=== PATIENT | male | born 1965 | race African-American/Black ===

== ENCOUNTER 2018-07-21 11:31 | Observation (INO) | payer BC ==
[2018-07-21 11:37] VITALS: BMI 29.0
--- NOTE | 2018-07-21 12:11 | PDOC ---
History of Present Illness - General History Source: Patient Exam Limitations: Intoxication <Praveen Nair - Last Filed: 07/21/18 14:23> - General History Source: Patient Exam Limitations: Intoxication <Lily Bacon Gilbert - Last Filed: 07/21/18 15:26> - General Chief Complaint: Chest Pain Stated Complaint: CHEST PAIN Time Seen by Provider: 07/21/18 11:53 - History of Present Illness Initial Comments: 07/21/18 14:23 The patient is a 53 year old male with a significant past medical history of Afib (no AC), CAD([place]) , Gout , and alcohol dependence who presents to the emergency department with left sided chest pain and palpitations and shortness of breath for 1 week.. The patient states that he drank some beer and wine prior to episode this morning. He report daily etho use. He denies any detox history. The patient denies any other symptoms. He denies any fever,chills, nausea, vomiting, diarrhea, constipation, or urinary symptoms. He denies any weakness, numbness or tingling sensation. He denies any headache or dizziness.the patient denies any other complaints. He was recently using allopurinol and steroids which he finished for his gout flare up, last week. (Praveen Nair) Past History <Praveen Nair - Last Filed: 07/21/18 14:23> - Past Medical History Cardiac Disorders: Yes (valve) COPD: No - Suicide/Smoking/Psychosocial Hx Smoking History: Never smoked Information on smoking cessation initiated: No Hx Alcohol Use: No Drug/Substance Use Hx: No Substance Use Type: Alcohol <Lily Bacon - Last Filed: 07/21/18 15:26> - Past Medical History Allergies/Adverse Reactions: Allergies Allergy/AdvReac Type Severity Reaction Status Date / Time No Known Allergies Allergy Verified 07/21/18 11:37 Home Medications: Ambulatory Orders Allopurinol [Zyloprim -] 100 mg PO DAILY 07/21/18 Review of Systems - Review of Systems Able to Perform ROS?: Yes <Praveen Nair - Last Filed: 07/21/18 14:23> <Lily Bacon - Last Filed: 07/21/18 15:26> - Review of Systems Comments:: 07/21/18 14:23 Constitutional: no fevers or chills. HEENT: no headache or dizziness. No congestion. No visual/hearing disturbances. CVS: (+)chest pain, palpitations, . no syncope. Resp: (+) shortness of breath. No cough. Abdomen: no abdominal pain, nausea or vomiting. Genitourinary: no urinary sx, hematuria. MUSCULOSKELETAL: No joint pain and swelling. No neck or back pain. SKIN: no redness or skin changes, no discharge, no rash. No wounds. Hematologic: no easy bruising/bleeding. NEUROLOGIC: No headache, dizziness, LOC or altered mental status. No weakness, numbness or tingling. All other systems reviewed and negative, or as documented in HPI. (Praveen Nair) *Physical Exam <Praveen Nair - Last Filed: 07/21/18 14:23> <Lily Bacon - Last Filed: 07/21/18 15:26> - Vital Signs Last Vital Signs Temp Pulse Resp BP Pulse Ox 98.2 F 89 17 117/78 98 07/21/18 14:01 07/21/18 14:01 07/21/18 14:01 07/21/18 14:01 07/21/18 14:01 - Physical Exam Comments: 07/21/18 14:23 General: (+)Intoxicated, slurred speech. awake and alert, NAD. HEENT: NCAT, PERRL, EOMI, clear conjunctiva, anicteric, moist mucus membranes, clear oropharynx. Airway patent, normal phonation Neck: neck supple, FROM Lungs: CTAB, normal and even respirations, no respiratory distress Heart: (+)irregularly irregular., normal rate. no murmurs, 2+ peripheral pulses throughout, no peripheral edema Abdomen: soft, NTND, no peritoneal signs. No CVAT Back: nontender, normal inspection and ROM Extremities: no edema, x4, ROM intact. No clubbing or cyanosis Neuro: alert, oriented appropriately; no focal neurologic deficits. Skin: warm and well perfused, cap refill <2 sec, normal color; no rash Extrem: no calf tenderness (Praveen Nair) ED Treatment Course - LABORATORY CBC & Chemistry Diagram: 07/21/18 12:30 07/21/18 12:30 <Praveen Nair - Last Filed: 07/21/18 14:23> - LABORATORY CBC & Chemistry Diagram: 07/21/18 12:30 07/21/18 12:30 <Lily Bacon - Last Filed: 07/21/18 15:26> - ADDITIONAL ORDERS Additional order review: Laboratory Results 07/21/18 07/21/18 07/21/18 13:00 12:40 12:30 PT with INR 11.70 INR 0.99 Sodium Potassium Chloride Carbon Dioxide Anion Gap BUN Creatinine Creat Clearance w eGFR Random Glucose Calcium Magnesium Total Bilirubin AST ALT Alkaline Phosphatase Creatine Kinase Creatine Kinase Index CK-MB (CK-2) Troponin I Total Protein Albumin Lipase Urine Color Colorless Urine Appearance Clear Urine pH 5.0 Ur Specific [place] 1.003 L Urine Protein Negative Urine Glucose (UA) Negative Urine Ketones Negative Urine Blood Negative Urine Nitrite Negative Urine Bilirubin Negative Urine Urobilinogen Negative Ur Leukocyte Esterase Negative Opiates Screen Negative Methadone Screen Negative Barbiturate Screen Negative Phencyclidine Screen Negative Ur Amphetamines Screen Negative MDMA (Ecstasy) Screen Negative Benzodiazepines Screen Negative Cocaine Screen Negative U Marijuana (THC) Screen Negative Alcohol, Quantitative 07/21/18 07/21/18 12:30 12:30 PT with INR INR Sodium 141 Potassium 4.3 Chloride 106 Carbon Dioxide 27 Anion Gap 9 BUN 12 Creatinine 0.9 Creat Clearance w eGFR > 60 Random Glucose 82 Calcium 8.5 Magnesium 2.2 Total Bilirubin 0.3 AST 58 H ALT 45 Alkaline Phosphatase 110 Creatine Kinase 178 Creatine Kinase Index 1.1 CK-MB (CK-2) 2.1 Troponin I < 0.02 < 0.02 Total Protein 8.1 Albumin 4.2 Lipase 227 Urine Color Urine Appearance Urine pH Ur Specific [place] Urine Protein Urine Glucose (UA) Urine Ketones Urine Blood Urine Nitrite Urine Bilirubin Urine Urobilinogen Ur Leukocyte Esterase Opiates Screen Methadone Screen Barbiturate Screen Phencyclidine Screen Ur Amphetamines Screen MDMA (Ecstasy) Screen Benzodiazepines Screen Cocaine Screen U Marijuana (THC) Screen Alcohol, Quantitative 354.7 H 07/21/18 12:30 RBC 4.15 MCV 92.6 MCHC 33.7 RDW 14.6 MPV 8.1 Neutrophils % 61.4 Lymphocytes % 27.8 Monocytes % 9.5 Eosinophils % 1.0 Basophils % 0.3 - RADIOLOGY Radiology Studies Ordered: Category Date Time Status CHEST PA & LAT [RAD] Stat Radiology 07/21/18 12:14 Completed - Medications Given in the ED: ED Medications Discontinued Medications Generic Name Dose Route Start Last Admin Trade Name Frederick PRN Reason Stop Dose Admin Aspirin 324 mg 07/21/18 12:39 07/21/18 12:53 Asa - PO 07/21/18 12:40 324 mg ONCE ONE Administration Sodium Chloride 1,000 ml 07/21/18 12:40 07/21/18 12:53 Normal Saline - IV 07/21/18 12:41 1,000 ml ONCE ONE Administration Medical Decision Making <Praveen Nair - Last Filed: 07/21/18 14:23> <Lily Bacon - Last Filed: 07/21/18 15:26> - Medical Decision Making 07/21/18 14:53 I, Lily Bacon MD, attest that this document has been prepared under my direction and personally reviewed by me in its entirety. I further attest, that it accurately reflects all work, treatment, procedures and medical decision -making performed by me. 53 year old male with a significant past medical history of Afib (no AC), CAD( [place]) , Gout , and alcohol dependence who presents to the emergency department with left sided chest pain and palpitations and shortness of breath for 1 week. vitals wnl, reassuring. Afib rate controlled, not on AC EKG with Afib at 89 bpm, nonspecific T wave abnormalities, normal ST segments, narrow QRS normal intervals. labs and lytes wnl, neg trop x1, no events does get tachy with agitation CXR clear, no edema or infection. intoxicated clinically with ETOH elevated as expected. Utox neg. cannot sign out or have capacity to make decisions while inebriated, at bedside made aware of impression plan. admit for tele monitoring serial trops/EKG, given cardiac risk factors and no cards followup, admit to hospitalist. no cards followup, and PMD in [facility]. 07/21/18 14:54 07/21/18 14:58 07/21/18 15:25 (Lily Bacon) *DC/Admit/Observation/Transfer <Praveen Nair - Last Filed: 07/21/18 14:23> - Discharge Dispostion Decision to Admit order: Yes <Lily Bacon - Last Filed: 07/21/18 15:26> Diagnosis at time of Disposition: Chest pain, Atrial fibrillation, Alcohol intoxication - Discharge Dispostion Condition at time of disposition: Guarded - Attestations Scribe Attestion: 07/21/18 14:24 Documentation prepared by Praveen Nair, acting as medical reception specialist for Lliy Bacon MD. (Praveen Nair)
[2018-07-21] MEDS ORDERED: ASPIRIN 81 MG CHEWABLE TABLETS PO ONE (12:39)
[2018-07-21] MEDS ORDERED: SODIUM CHLORIDE 0.9% 500 ML INFUS.BAG IV ONE (12:40)
[2018-07-21 12:45] LABS: BASO % 0.3 % (0-2.0); HEMATOCRIT 38.5 % (35.4-49); LYMPH % 27.8 % (8-40); MCH 31.2 pg (25.7-33.7); MCHC 33.7 g/dl (32.0-35.9); MEAN CELL VOLUME 92.6 fl (80-96); MEAN PLT VOLUME 8.1 fl (7.5-11.1); MONO % 9.5 % (3.8-10.2); NEUT % 61.4 % (42.8-82.8); PLATELET COUNT 185 K/MM3 (134-434); RBC 4.15 M/mm3 (4.00-5.60); RDW 14.6 % (11.9-15.9)
[2018-07-21] MEDS ORDERED: ASPIRIN 81 MG CHEWABLE TABLETS ONE (12:48)
[2018-07-21 13:00] LABS: INR 0.99 (0.83-1.09); PROTHROMBIN TIME (PATIENT) 11.7 SEC (9.7-13.0)
[2018-07-21 13:13] LABS: URINE APPEARANCE CLEAR; URINE BILIRUBIN NEGATIVE (<2.0 mg/dL); URINE COLOR COLORLESS; URINE GLUCOSE (UA) NEGATIVE (NEGATIVE); URINE KETONE NEGATIVE (NEGATIVE); URINE LEUK ESTERASE NEGATIVE (NEGATIVE); URINE NITRITE NEGATIVE (NEGATIVE); URINE PROTEIN NEGATIVE (NEGATIVE); URINE UROBILINOGEN NEGATIVE mg/dL (0.2-1.0)
[2018-07-21 13:17] LABS: ALBUMIN 4.2 g/dl (3.4-5.0); ALK PHOS 110 U/L (45-117); ANION GAP 9 MMOL/L (8-16); BILIRUBIN,TOTAL 0.3 mg/dL (0.2-1); BLOOD UREA NITROGEN 12 mg/dL (7-18); CALCIUM 8.5 mg/dL (8.5-10.1); CHLORIDE 106 mmol/L (98-107); CO2 27 mmol/L (21-32); CREATININE 0.9 mg/dL (0.55-1.3); GLUCOSE,RANDOM 82 mg/dL (74-106); MAGNESIUM 2.2 mg/dL (1.8-2.4); POTASSIUM 4.3 mmol/L (3.5-5.1); SGOT/AST 58 U/L (15-37); SGPT/ALT 45 U/L (13-61); SODIUM 141 mmol/L (136-145); TOT PROT 8.1 g/dl (6.4-8.2)
[2018-07-21 13:26] LABS: LIPASE 227 U/L (73-393)
[2018-07-21 13:38] LABS: COCAINE, UR NEGATIVE ng/ml (CUTOFF=300); METHADONE, UR NEGATIVE ng/ml (CUTOFF=300); OPIATES, URI NEGATIVE ng/ml (CUTOFF=300); PHENCYCLIDINE,URINE NEGATIVE ng/ml (CUTOFF=25); URINE AMPHETAMINES NEGATIVE ng/ml (CUTOFF=500); URINE BARBITURATES NEGATIVE ng/ml (CUTOFF=200); URINE BENZODIAZEPINES NEGATIVE ng/ml (CUTOFF=200)
--- NOTE | 2018-07-21 15:41 | HP ---
CHIEF COMPLAINT:CHEST PAIN. PCP: HISTORY OF PRESENT ILLNESS: 53 yo M with PMHx of CAD presents with one day history of chest pain. He states that this morning he was working on sanding his floor when he developed palpiatations and chest pain. He describes 3/10 non radiating left sided chest pain that was sharp and pressure-like. He states that the pain lasted about an hour and resolved spontaneously. Pain was no associated with diaphoresis. He has had similar pain in past approx. 3 yrs prior and was worked up with stress test which he claims was normal. He thinks he had an echo done at that time but unsure. He is unsure where this was all done. He denies [place] CRUZ, SOB, abdominal pain , fever, chills, nausea or vomiting. ER course was notable for: (1)EKG shows AFIB with no ischemic changes. (2)Given 325 ASA (3)first set troponin I negative. Recent Travel:denies PAST MEDICAL HISTORY: CAD, Hyperthyroidism?, Sickle cell trait. PAST SURGICAL HISTORY:hand surgery Social History: Smoking:never Alcohol:1-2 bottles of wine/day Drugs: remote history of Marijuana use. Family History: Allergies No Known Allergies Allergy (Verified 07/21/18 11:37) HOME MEDICATIONS: Home Medications Medication Instructions Recorded Allopurinol [Zyloprim -] 100 mg PO DAILY 07/21/18 REVIEW OF SYSTEMS CONSTITUTIONAL: Absent: fever, chills, diaphoresis, generalized weakness, malaise, loss of appetite, weight change HEENT: Absent: rhinorrhea, nasal congestion, throat pain, throat swelling, difficulty swallowing, mouth swelling, ear pain, eye pain, visual changes CARDIOVASCULAR: chest pain,palpitations Absent: , syncope, , irregular heart rate, lightheadedness, peripheral edema RESPIRATORY: Absent: cough, shortness of breath, dyspnea with exertion, orthopnea, wheezing, stridor, hemoptysis GASTROINTESTINAL: Absent: abdominal pain, abdominal distension, nausea, vomiting, diarrhea, constipation, melena, hematochezia GENITOURINARY: Absent: dysuria, frequency, urgency, hesitancy, hematuria, flank pain, genital pain MUSCULOSKELETAL: Absent: myalgia, arthralgia, joint swelling, back pain, neck pain SKIN: Absent: rash, itching, pallor HEMATOLOGIC/IMMUNOLOGIC: Absent: easy bleeding, easy bruising, lymphadenopathy, frequent infections ENDOCRINE: Absent: unexplained weight gain, unexplained weight loss, heat intolerance, cold intolerance NEUROLOGIC: Absent: headache, focal weakness or paresthesias, dizziness, unsteady gait, seizure, mental status changes, bladder or bowel incontinence PSYCHIATRIC: Absent: anxiety, depression, suicidal or homicidal ideation, hallucinations. PHYSICAL EXAMINATION Vital Signs - 24 hr 07/21/18 07/21/18 07/21/18 11:35 12:21 14:01 Temperature 98 F 98.2 F Pulse Rate 99 H Pulse Rate [ 89 89 Apical] Respiratory 19 17 17 Rate Blood Pressure 136/96 Blood Pressure 123/78 117/78 [Right Arm] O2 Sat by Pulse 96 98 98 Oximetry (%) GENERAL: AAOx3 , NAD HEAD:NCAT EYES: PERRLA,EOMI sclera anicteric, conjunctiva clear. No lid lag. EARS, NOSE, THROAT: Moist mucous membranes. NECK:Supple without lymphadenopathy, JVD, or masses. LUNGS: CTAB. No wheezes, and no crackles. No accessory muscle use. HEART: Irregular, normal S1 and S2 without murmur, rub or gallop. ABDOMEN: Soft, NTND,NABS no guarding, no rebound, no masses. No hepatomegaly or splenomegaly. MUSCULOSKELETAL: Normal range of motion at all joints. No bony deformities or tenderness. No CVA tenderness. LOWER EXTREMITIES: 2+ pulses, warm, well-perfused. No calf tenderness. No peripheral edema. NEUROLOGICAL: Cranial nerves II-XII intact. Normal speech. Normal gait. PSYCHIATRIC: Cooperative. Good eye contact. Appropriate mood and affect. SKIN: Warm, dry, normal turgor, no rashes or lesions noted, normal capillary refill. Laboratory Results - last 24 hr 07/21/18 07/21/18 07/21/18 12:30 12:30 12:30 WBC 6.0 RBC 4.15 Hgb 13.0 Hct 38.5 MCV 92.6 MCH 31.2 MCHC 33.7 RDW 14.6 Plt Count 185 MPV 8.1 Absolute Neuts (auto) 3.7 Neutrophils % 61.4 Lymphocytes % 27.8 Monocytes % 9.5 Eosinophils % 1.0 Basophils % 0.3 Nucleated RBC % 0 PT with INR INR Sodium 141 Potassium 4.3 Chloride 106 Carbon Dioxide 27 Anion Gap 9 BUN 12 Creatinine 0.9 Creat Clearance w eGFR > 60 Random Glucose 82 Calcium 8.5 Magnesium 2.2 Total Bilirubin 0.3 AST 58 H ALT 45 Alkaline Phosphatase 110 Creatine Kinase 178 Creatine Kinase Index 1.1 CK-MB (CK-2) 2.1 Troponin I < 0.02 < 0.02 Total Protein 8.1 Albumin 4.2 Lipase 227 Urine Color Urine Appearance Urine pH Ur Specific [place] Urine Protein Urine Glucose (UA) Urine Ketones Urine Blood Urine Nitrite Urine Bilirubin Urine Urobilinogen Ur Leukocyte Esterase Opiates Screen Methadone Screen Barbiturate Screen Phencyclidine Screen Ur Amphetamines Screen MDMA (Ecstasy) Screen Benzodiazepines Screen Cocaine Screen U Marijuana (THC) Screen Alcohol, Quantitative 354.7 H 07/21/18 07/21/18 07/21/18 12:30 12:40 13:00 WBC RBC Hgb Hct MCV MCH MCHC RDW Plt Count MPV Absolute Neuts (auto) Neutrophils % Lymphocytes % Monocytes % Eosinophils % Basophils % Nucleated RBC % PT with INR 11.70 INR 0.99 Sodium Potassium Chloride Carbon Dioxide Anion Gap BUN Creatinine Creat Clearance w eGFR Random Glucose Calcium Magnesium Total Bilirubin AST ALT Alkaline Phosphatase Creatine Kinase Creatine Kinase Index CK-MB (CK-2) Troponin I Total Protein Albumin Lipase Urine Color Colorless Urine Appearance Clear Urine pH 5.0 Ur Specific [place] 1.003 L Urine Protein Negative Urine Glucose (UA) Negative Urine Ketones Negative Urine Blood Negative Urine Nitrite Negative Urine Bilirubin Negative Urine Urobilinogen Negative Ur Leukocyte Esterase Negative Opiates Screen Negative Methadone Screen Negative Barbiturate Screen Negative Phencyclidine Screen Negative Ur Amphetamines Screen Negative MDMA (Ecstasy) Screen Negative Benzodiazepines Screen Negative Cocaine Screen Negative U Marijuana (THC) Screen Negative Alcohol, Quantitative ASSESSMENT/PLAN: 53 yo M with pmhx of CAD presents with chest pain and placed on observation to telemetry to r/o ACS. Problem List - Problem (1) Chest pain Assessment/Plan: will r/o ACS * Place on observation to telemetry * continuous monitoring * trend trops Q6H (first set negative) * Consult cardiology for possible stress test. * ASA given in ED - continue ASA 81mg daily * lipid panel pending. * Echo pending. (2) Atrial fibrillation Assessment/Plan: CHADSVASc score 1 * Not currently on rate control or AC * (3) Alcohol intoxication Assessment/Plan: drug and alcohol counsellor on the impact of Alcohol abuse. Visit type - Emergency Visit Emergency Visit: Yes ED Registration Date: 07/21/18 Care time: The patient presented to the Emergency Department on the above date and was hospitalized for further evaluation of their emergent condition. - New Patient This patient is new to me today: Yes Date on this admission: 07/21/18 - Critical Care Critical Care patient: No
[2018-07-21 16:50] VITALS: BP 122/79; PULSE 82; TEMP 98.6
--- NOTE | 2018-07-21 18:48 | DS ---
Physical Exam: SUBJECTIVE: Patient seen and examined at bedside. Dressed and eager to leave. Denies CP, [place] CRUZ, SOB, abdominal pain, nausea or vomiting. OBJECTIVE: Vital Signs Period Temp Pulse Resp BP Sys/Vuong Pulse Ox Last 24 Hr 98 F-98.6 F 82-99 17-19 117-136/78-96 96-98 PHYSICAL EXAM GENERAL: The patient is awake, alert, and fully oriented, in no acute distress. HEAD: Normal with no signs of trauma. EYES: PERRL, extraocular movements intact, sclera anicteric, conjunctiva clear. ENT: Ears normal, nares patent, oropharynx clear without exudates, moist mucous membranes. NECK: Trachea midline, full range of motion, supple. LUNGS: Breath sounds equal, clear to auscultation bilaterally, no wheezes, no crackles, no accessory muscle use. HEART: Irregular, S1, S2 without murmur, rub or gallop. ABDOMEN: Soft, nontender, nondistended, normoactive bowel sounds, no guarding, no rebound, no hepatosplenomegaly, no masses. EXTREMITIES: 2+ pulses, warm, well-perfused, no edema. NEUROLOGICAL: Cranial nerves II through XII grossly intact. Normal speech, gait not observed. PSYCH: Normal mood, normal affect. SKIN: Warm, dry, normal turgor, no rashes or lesions noted. LABS Laboratory Results - last 24 hr 07/21/18 07/21/18 07/21/18 12:30 12:30 12:30 WBC 6.0 RBC 4.15 Hgb 13.0 Hct 38.5 MCV 92.6 MCH 31.2 MCHC 33.7 RDW 14.6 Plt Count 185 MPV 8.1 Absolute Neuts (auto) 3.7 Neutrophils % 61.4 Lymphocytes % 27.8 Monocytes % 9.5 Eosinophils % 1.0 Basophils % 0.3 Nucleated RBC % 0 PT with INR INR Sodium 141 Potassium 4.3 Chloride 106 Carbon Dioxide 27 Anion Gap 9 BUN 12 Creatinine 0.9 Creat Clearance w eGFR > 60 Random Glucose 82 Calcium 8.5 Magnesium 2.2 Total Bilirubin 0.3 AST 58 H ALT 45 Alkaline Phosphatase 110 Creatine Kinase 178 Creatine Kinase Index 1.1 CK-MB (CK-2) 2.1 Troponin I < 0.02 < 0.02 Total Protein 8.1 Albumin 4.2 Lipase 227 Urine Color Urine Appearance Urine pH Ur Specific [place] Urine Protein Urine Glucose (UA) Urine Ketones Urine Blood Urine Nitrite Urine Bilirubin Urine Urobilinogen Ur Leukocyte Esterase Opiates Screen Methadone Screen Barbiturate Screen Phencyclidine Screen Ur Amphetamines Screen MDMA (Ecstasy) Screen Benzodiazepines Screen Cocaine Screen U Marijuana (THC) Screen Alcohol, Quantitative 354.7 H 07/21/18 07/21/18 07/21/18 12:30 12:40 13:00 WBC RBC Hgb Hct MCV MCH MCHC RDW Plt Count MPV Absolute Neuts (auto) Neutrophils % Lymphocytes % Monocytes % Eosinophils % Basophils % Nucleated RBC % PT with INR 11.70 INR 0.99 Sodium Potassium Chloride Carbon Dioxide Anion Gap BUN Creatinine Creat Clearance w eGFR Random Glucose Calcium Magnesium Total Bilirubin AST ALT Alkaline Phosphatase Creatine Kinase Creatine Kinase Index CK-MB (CK-2) Troponin I Total Protein Albumin Lipase Urine Color Colorless Urine Appearance Clear Urine pH 5.0 Ur Specific [place] 1.003 L Urine Protein Negative Urine Glucose (UA) Negative Urine Ketones Negative Urine Blood Negative Urine Nitrite Negative Urine Bilirubin Negative Urine Urobilinogen Negative Ur Leukocyte Esterase Negative Opiates Screen Negative Methadone Screen Negative Barbiturate Screen Negative Phencyclidine Screen Negative Ur Amphetamines Screen Negative MDMA (Ecstasy) Screen Negative Benzodiazepines Screen Negative Cocaine Screen Negative U Marijuana (THC) Screen Negative Alcohol, Quantitative HOSPITAL COURSE: PATIENT ADAMANTLY REFUSES HOSPITALIZATION AND WANTS TO LEAVE AGAINST MEDICAL ADVICE. I EXPLAINED TO PATIENT THAT AGAINST MEDICAL ADVICE IS DANGEROUS AND CAN LEAD TO WORSENING OF CONDITION, PERMANENT DISABILITY, AND EVEN . I USED LAY TERMINOLOGY. I ANSWERED ALL QUESTIONS. ITS CLEAR TO ME THAT HE UNDERSTANDS THE RISKS AND BENEFITS OF CONTINUOUS HOSPITAL STAY AND LEAVING AGAINST MEDICAL ADVISE. HE HAS THE CAPACITY TO MAKE HIS OWN DECISIONS. HE/SHE AGREES TO FOLLOW UP WITH HIS PRIMARY MEDICAL DOCTOR TOMORROW AND RETURN TO THE EMERGENCY DEPARTMENT IF SYMPTOMS WORSEN Date of Admission:07/21/18 Date of Discharge: 07/21/18 Minutes to complete discharge: 48 Discharge Summary Reason For Visit: CHEST PAIN Condition: Guarded - Instructions Diet, Activity, Other Instructions: You have been seen today for your chest pain. There are concerns that this pain may be coming from your heart. It has been advised for you to stay the hospital to be worked up further to be sure it is not something serious like a heart attach. However you have made the decision to leave the hospital against medical advise. Please return to hospital immediately if symptoms return. Resume all home meds as previously directed. Increase activity as tolerated. Resume a regular diet. Please see your PCP within a week. Disposition: AGAINST MEDICAL ADVICE - Home Medications Comprehensive Discharge Medication List: Ambulatory Orders Allopurinol [Zyloprim -] 100 mg PO DAILY 07/21/18 Problem List - Problems (1) Chest pain Assessment/Plan: will r/o ACS * Place on observation to telemetry * continuous monitoring * trend trops Q6H (first set negative) * Consult cardiology for possible stress test. * ASA given in ED - continue ASA 81mg daily * lipid panel pending. * Echo pending. (2) Atrial fibrillation Assessment/Plan: CHADSVASc score 1 * Not currently on rate control or AC * (3) Alcohol intoxication Assessment/Plan: children counselor on the impact of Alcohol abuse. This patient is new to me today: Yes Date on this admission: 07/24/18 Emergency Visit: Yes ED Registration Date: 07/21/18 Care time: The patient presented to the Emergency Department on the above date and was hospitalized for further evaluation of their emergent condition. Critical Care patient: No - Discharge Referral Referred to [facility] Med P.C.: No
--- NOTE | 2018-07-21 20:29 | PN ---
Teaching Attending Note Name of Resident: Lance Solis ATTENDING PHYSICIAN STATEMENT I saw and evaluated the patient. I reviewed the resident's note and discussed the case with the resident. I agree with the resident's findings and plan as documented. SUBJECTIVE: Patient presented to ED. for having chest pain, but didn't want to stay , signed out against medical advice. Temperature 98.6 F 07/21/18 16:25 Pulse Rate 82 07/21/18 16:25 Respiratory Rate 17 07/21/18 16:25 Blood Pressure 122/79 07/21/18 16:25 O2 Sat by Pulse Oximetry (%) 98 07/21/18 16:25 GENERAL: The patient is awake, alert, and fully oriented, in no acute distress. HEAD: Normal with no signs of trauma. EYES: PERRL, extraocular movements intact, sclera anicteric, conjunctiva clear. ENT: Ears normal, oropharynx clear without exudates, moist mucous membranes. NECK: Trachea midline, full range of motion, supple. LUNGS: Breath sounds equal, clear to auscultation bilaterally Heart Irregular, S1, S2 without murmur, rub or gallop. ABDOMEN: Soft, nontender, nondistended, normoactive bowel sounds. EXTREMITIES: 2+ pulses, warm, well-perfused, no edema. NEUROLOGICAL: Cranial nerves II through XII grossly intact. Normal speech, gait not observed. PSYCH: Normal mood, normal affect. SKIN: Warm, dry, normal turgor, no rashes or lesions noted. CBCD WBC 6.0 K/mm3 (4.0-10.0) 07/21/18 12:30 RBC 4.15 M/mm3 (4.00-5.60) 07/21/18 12:30 Hgb 13.0 GM/dL (11.7-16.9) 07/21/18 12:30 Hct 38.5 % (35.4-49) 07/21/18 12:30 MCV 92.6 fl (80-96) 07/21/18 12:30 MCHC 33.7 g/dl (32.0-35.9) 07/21/18 12:30 RDW 14.6 % (11.9-15.9) 07/21/18 12:30 Plt Count 185 K/MM3 (134-434) 07/21/18 12:30 MPV 8.1 fl (7.5-11.1) 07/21/18 12:30 CMP Sodium 141 mmol/L (136-145) 07/21/18 12:30 Potassium 4.3 mmol/L (3.5-5.1) 07/21/18 12:30 Chloride 106 mmol/L (98-107) 07/21/18 12:30 Carbon Dioxide 27 mmol/L (21-32) 07/21/18 12:30 Anion Gap 9 MMOL/L (8-16) 07/21/18 12:30 BUN 12 mg/dL (7-18) 07/21/18 12:30 Creatinine 0.9 mg/dL (0.55-1.3) 07/21/18 12:30 Creat Clearance w eGFR > 60 (>60) 07/21/18 12:30 Random Glucose 82 mg/dL (74-106) 07/21/18 12:30 Calcium 8.5 mg/dL (8.5-10.1) 07/21/18 12:30 Total Bilirubin 0.3 mg/dL (0.2-1) 07/21/18 12:30 AST 58 U/L (15-37) H 07/21/18 12:30 ALT 45 U/L (13-61) 07/21/18 12:30 Alkaline Phosphatase 110 U/L (45-117) 07/21/18 12:30 Total Protein 8.1 g/dl (6.4-8.2) 07/21/18 12:30 Albumin 4.2 g/dl (3.4-5.0) 07/21/18 12:30 CARDIAC ENZYMES Creatine Kinase 178 IU/L (26-308) 07/21/18 12:30 Troponin I < 0.02 ng/ml (0.00-0.05) 07/21/18 12:30 Home Medications Medication Instructions Recorded Allopurinol [Zyloprim -] 100 mg PO DAILY 07/21/18 ASSESSMENT AND PLAN: Patient is a 53 yo M with pmhx of CAD presents with chest pain and placed on observation to telemetry to r/o ACS. # Acute chest pain r/o ACS patient doesn't want to stay, signed against medical advice. Risks were explained to0 the patient, heart attack , coma and .
[2018-07-22 05:51] LABS: CHOLESTEROL 261 mg/dL (50-200); HDL CHOLESTEROL 137 mg/dL (40-60); TRIGLYCERIDES 68 mg/dL (0-150)
[2018-07-22] MEDS ORDERED: ENOXAPARIN NA (PORCINE) 40 MG/0.4 ML DISP.SYRIN SQ SCH (10:00)
[2018-07-22] MEDS ORDERED: ALLOPURINOL 100 MG TABLET (FP) PO SCH (10:00)
--- NOTE | 2018-07-22 11:11 | EKG ---
Test Reason : Blood Pressure : / mmHG Vent. Rate : 089 BPM Atrial Rate : 576 BPM P-R Int : 000 ms QRS Dur : 100 ms QT Int : 372 ms P-R-T Axes : 000 -31 -05 degrees QTc Int : 452 ms ATRIAL FIBRILLATION LEFT AXIS DEVIATION ABNORMAL ECG NO PREVIOUS ECGS AVAILABLE Confirmed by SARA MORALES MD ([id number]) on 07/22/2018 11:11:13 AM Referred By: Confirmed By:SARA MORALES MD
== END 2018-07-21 16:32 | disposition left against medical advice (07) ==
LOC: JER 11:31 → JERBED 14:51
PROVIDERS: ADMIT Internal Medicine; ATTEND Internal Medicine
PROC: 3E0337Z Introduction of Electrolytic and Water Balance Substance into Peripheral Vein, Percutaneous Approach (ICD-10-PCS; principal; 2018-07-21)
DX: R07.9 Chest pain, unspecified (principal); I48.91 Unspecified atrial fibrillation; F10.229 Alcohol dependence with intoxication, unspecified; I25.10 Atherosclerotic heart disease of native coronary artery without angina pectoris; I25.2 Old myocardial infarction; M10.9 Gout, unspecified
CPT/HCPCS: 36415; 71046-TC-FY; 80053; 80061; 80307; 81003; 82550; 82553; 83690; 83721; 83735; 84484; 85025; 85610; 93005; 93010; 99285-25; G0378